=== PATIENT | female | born 2000 | race African-American/Black ===

== ENCOUNTER 2024-07-11 12:27 | Emergency (ER) | payer OTHER, SELFPAY ==
[2024-07-11 12:35] VITALS: BP 114/76
--- NOTE | 2024-07-11 13:39 | ED.GENMED ---
History of Present Illness
General
Chief Complaint: Chest Pain
Source: patient
Time Seen by Provider: 07/11/24 13:21
History of Present Illness
History of Present Illness:
24yoF with no significant past medical history presenting with her mother for evaluation of chest pain. She woke up this morning with right sided chest discomfort. She describes the pain as achy and sharp. Pain is worse with movement of the right
arm. She denies any trauma to the chest. She has been having an ongoing cough for the past month. She denies any shortness of breath, fevers, leg swelling, calf pain. No recent travel or oral contraceptive use.
Phy Exam
General Physical Exam
General Presentation: well appearing and no apparent distress
General age: appears stated age
General Skin: warm and dry
General Habitus: normal
General Mental: alert
ENT Exam
ENT Exam: normocephalic
Cardiovascular Exam
Cardiovascular Exam: regular rate/rhythm, no edema and no murmur
Pulmonary Exam
Pulmonary Exam: lungs clear, no respiratory distress, no rales, no crackles and no rhonchi
Neurological Exam
Neurological Exam: alert
[place] Coma Scale
Eye Opening: Spontaneous
Verbal Response: Oriented
Motor Response: Obeys Commands
GCS Total Score: 15
Skin Exam
Skin Exam: normal color and warm/dry
Psychiatric Exam
Psychiatric Exam: normal mood/affect
Scores
Heart Score for Chest Pain Patients
STEMI patient?: Not applicable
PE Wells Score
Symptoms of DVT: No
No alternative diagnosis better explains the illness: No
Tachycardia with pulse > 100: No
Immobilization (>=3 days) or surgery within previous 4 weeks: No
Prior history of DVT or pulmonary embolism: No
Presence of hemoptysis: No
Presence of malignancy: No
Pulmonary Embolism Risk Score: 0
Probability of PE: Pt is low risk
PERC Rule Criteria
Age <50 years: Yes
HR <100 bpm: Yes
Room air oxygen sat >94%: Yes
History of DVT or PE: No
Recent trauma or surgery: No
Hemoptysis: No
Exogenous estrogen: No
Clinical signs suggestive of DVT: No
: No
Considered low risk for PE: Yes
PERC Score: 0
PE can be excluded by PERC: Yes
Course
Orders/Labs/Results
Orders:
Orders
07/11/24 12:27
ECG [Electrocardiogram (*1)] Urgent
Reason for Study: Chest Pain
07/11/24 12:28
EKG- Treatment ONCE
07/11/24 12:39
CXR2 [CR Chest - 2 Views ] Urgent
Comment:
Reason For Exam: CP
Vital Signs
Initial and Last Documented VS:
Initial Vital Signs
Temp Pulse Resp BP Pulse Ox
97.3 F 82 16 114/76 98
07/11/24 12:35 07/11/24 12:35 07/11/24 12:35 07/11/24 12:35 07/11/24 12:35
Last Documented Vital Signs
Temp Pulse Resp BP Pulse Ox
97.3 F 80 18 112/75 98
07/11/24 12:35 07/11/24 14:37 07/11/24 14:37 07/11/24 14:37 07/11/24 14:37
MDM/Problems Addressed
Differential Diagnosis Includes:
24yoF here with R sided chest pain that began this morning. Worse with movement of R arm. Has been having a cough x 1 month. She is afebrile and hemodynamically stable. She is well-appearing in no acute distress. Exam reassuring and lungs clear
to auscultation. Differential diagnosis includes but is not limited to: Costochondritis, pleurisy, pneumonia, pneumothorax
EKG shows NSR without ischemic changes. CXR is clear without infiltrates. She is low risk according to Wells criteria and PERC negative. PE clinically ruled out. Suspect musculoskeletal pain. Supportive care discussed. Advised follow-up with PCP
and ED return precautions discussed. She expressed understanding and was discharged in stable condition.
*EKG
Interpreted by ED Provider?: Yes
EKG Intrepretation Date: 07/11/24
Heart Rate: 81
Rate: normal
Rhythm: sinus
[place]: normal axis
Interval: normal interval
QRS Pattern: normal QRS
Ischemia: no ischemia
*Critical Care Note
Total Time (30-74mins, 75-104mins- exclusive of procedures): Not Applicable
ED Attending Note
-
Portions of this chart may have been created with voice recognition software.� Occasional wrong word or��sound alike� substitutions may have occurred due to the inherent limitations of voice recognition software.
Discharge Plan
Departure
Patient Disposition: Home (Routine Discharge)
Date of Disposition: 07/11/24
Time of Disposition: 13:40
Patient with high blood pressure during this ER visit?: No
Discharge Problem:
Right-sided chest pain
Instructions: Chest Pain PCP Follow Up
Stand Alone Forms: Return to Work
Activity Restrictions/Additional Instructions:
Apply heat to affected area. Take Tylenol and ibuprofen as needed for pain.
Please follow-up with your family doctor. Return to the ER with any new or worsening symptoms.
Interventions
Interventions:
*Risk Screen - Suicide Last Done: 07/11/24 12:35
*General Assessment Last Done: 07/11/24 12:35
*Neglect/Abuse Screening Last Done: 07/11/24 12:35
*Nursing Disposition Last Done: 07/11/24 14:39
ED- Cardiac Assessment Last Done: 07/11/24 14:37
Discharge Date and Time
Discharge Date/Time: 07/11/24 14:40
Print Language: [id number]
[2024-07-11 14:37] VITALS: BP 112/75
== END 2024-07-11 14:40 | disposition home or self-care (01) ==
LOC: EMR 12:27
PROVIDERS: EMERGENCY PHYSICIAN Emergency Medicine
DX: R07.89 Other chest pain (principal)
CPT/HCPCS: 99284; 71046; 93005